=== PATIENT | female | born 1995 | race Hispanic/Latino ===

== ENCOUNTER 2018-12-10 06:57 | Emergency (ER) | payer OTHER, SELFPAY ==
[2018-12-10 07:09] VITALS: BP 118/72; PULSE 76; RESP 15; TEMP 36.6; O2SAT 99
--- NOTE | 2018-12-10 07:22 | ED.GENADULT ---
HPI - General Adult General Chief complaint: Urogenital-Female Stated complaint: Lower back pain, pressure during urination Time Seen by Provider: 12/10/18 06:59 Source: patient Mode of arrival: Family Vehicle Limitations: no limitations History of Present Illness HPI narrative: Otherwise healthy 23-year-old female who is active duty [place] here for evaluation of lower back pain and dysuria. States the symptoms been going on for the past 5 days. No fevers. No nausea vomiting. Some vaginal discharge. No bowel changes. States she has had a urinary tract infection on past this feels somewhat like that however not exactly. Has not done anything for symptoms prior to arrival Related Data Allergies Allergy/AdvReac Type Severity Reaction Status Date / Time No Known Drug Allergies Allergy Verified 12/10/18 07:12 Review of Systems Constitutional Constitutional: Denies fever(s) Cardiovascular Cardiovascular: Denies chest pain and Denies dyspnea Respiratory Respiratory: Denies dyspnea Gastrointestinal Gastrointestinal: Denies abdominal pain, Denies nausea and Denies vomiting Genitourinary Genitourinary: Reports urinary frequency, Reports dysuria, Denies urinary incontinence, Reports urinary hesitancy and Reports urinary urgency Musculoskeletal Musculoskeletal: Reports back pain Integumentary/Breasts Skin/Breast: Denies lesions and Denies rash Neurologic Neurologic: Denies behavioral changes Psychiatric Psychiatric: Denies behavioral changes Hematologic/Lymphatic Hematologic/Lymphatic: Denies easy bleeding and Denies easy bruising [facility] Medical History Healthy adult (Acute) Social History Smoking Status: Never smoker Social History Smoking Status: Never smoker Exam Initial Vital Signs Initial Vital Signs: Vital Signs Temperature 97.8 F 12/10/18 07:09 Pulse Rate 76 12/10/18 07:09 Respiratory Rate 15 12/10/18 07:09 Blood Pressure 118/72 12/10/18 07:09 Pulse Oximetry 99 12/10/18 07:09 Const General: cooperative, comfortable and well developed Orientation: alert, awake and oriented x3 Resp Effort & Inspection: normal respiratory effort Auscultation: clear to auscultation bilaterally Cardio Rate: regular rate Rhythm: regular rhythm GI Inspection: non-distended Palpation: soft, No firm and No tender Back/Spine/Pelvis Back: No CVA tenderness Thoracic/Lumbar Spine: No thoracic spinal tenderness and No lumbar spinal tenderness Skin Lesions: no lesions Rashes: no rashes Neuro General: alert and awake Cognition: normal cognition Speech: speech normal Motor: muscle tone normal throughout Sensory Exam: no sensory deficits noted Extrem General: normal to inspection and capillary refill normal Psych Appearance: grossly normal and well kempt Course Orders Ordered: ED Orders 12/10/18 07:22 Urine Chlamydia Gonorrhea PCR Stat Urine Culture Stat Urine Microscopic Stat 12/10/18 07:35 US pelvic complete Stat Vital Signs Vital signs: Vital Signs - 8 hr 12/10/18 07:09 12/10/18 09:03 Temperature 97.8 F Pulse Rate 76 64 Respiratory Rate 15 16 Blood Pressure 118/72 Blood Pressure [Left Arm] 116/81 Pulse Oximetry 99 100 Medical Decision Making Lab Data Lab results reviewed: Yes I reviewed the patient's lab results. Labs: Lab Results 12/10/18 12/10/18 Range/Units 07:22 07:22 Urine RBC None seen (0-5/HPF) Urine WBC 5-10/hpf H (0-5/HPF) Ur Squamous Epith Cells 10-30 /hpf H (0-5/HPF) Urine Bacteria Few (2-10) H (None) Urine Mucus 2+ H (Negative) Ur Culture Indicated? Cult not indicated Ur Chlamydia DNA (PCR) Not detected N gonorrhoeae DNA (PCR) Not detected Point of Care Testing Test Results Negative Urine Dip Bedside Urine Glucose Negative Bedside Urine Bilirubin + 1 Bedside Urine Ketone - Negative Urine Specific [place] 1.015 Bedside Urine Occult Blood - Negative Bedside Urine pH 7.5 Bedside Urine Protein +/- 15 Bedside Urine Urobilinogen +/- 1mg Bedside Urine Nitrite - Negative Bedside Urine Leukocytes ++ 125 Esterase Point of care testing: Point of Care Testing Test Results Negative Urine Dip Bedside Urine Glucose Negative Bedside Urine Bilirubin + 1 Bedside Urine Ketone - Negative Urine Specific [place] 1.015 Bedside Urine Occult Blood - Negative Bedside Urine pH 7.5 Bedside Urine Protein +/- 15 Bedside Urine Urobilinogen +/- 1mg Bedside Urine Nitrite - Negative Bedside Urine Leukocytes ++ 125 Esterase Imaging Data US - abdomen: Radiologist's impression: [address] [address] Ultrasound Report Signed Patient: Jenniffer Johnson#: [id number] : 1995Acct:[id number] Age/Sex: 23 / FDate of Service: 12/10/18 Loc: ED Accession Number: [id number] Procedure: US pelvic complete Ordering Provider: Jaun Ibarra D.O. PROCEDURE: US PELVIC COMPLETE INDICATIONS: LEFT ADNEXAL PAIN, EVAL FOR OVARIAN PATHOLOGY TECHNIQUE: Real-time scanning was performed of the pelvic organs, with image documentation. Additional endovaginal scanning was necessary due to incomplete visualization of the adnexal and endometrial structures by transabdominal scanning. COMPARISON: None. FINDINGS: Transabdominal scanning: Limited scanning through the kidneys shows no hydronephrosis. No pathologic free abdominal or pelvic fluid. Endovaginal scanning: Uterus: Uterus is normal in size at 9.0 x 4.3 x 5.2 cm. The endometrium measures 4.8 mm in combined thickness. The cervix appears normal. There is small amount of cul-de-sac simple fluid. Ovaries: The right ovary measures 5.4 x 3.3 x 2.5 cm and contains a partially involuted dominant simple follicle measuring 2.8 cm. There is normal flow to the right ovary. The left ovary was not seen. Bowel gas shadows the left adnexa. There is slight prominence of paraovarian and periuterine vasculature. No suspicious adnexal masses. IMPRESSION: 1. There is bowel gas shadowing the left adnexa and the left ovary was not seen. 2. The right ovary contains a dominant follicle and there is a small amount of pelvic fluid suggesting recent follicle rupture. 3. Normal uterus. 4. Mildly prominent pelvic vasculature may indicate pelvic congestion syndrome if symptomatic. Dictated by: Maribell Matson M.D. on 12/10/2018 at 9:15 Approved by: Maribell Matson M.D. on 12/10/2018 at 9:20 [facility] Narrative Medical decision making narrative: Unfortunately the ultrasound was not able to identify the left ovary which is the side where she was having most of her discomfort. She did have some free fluid in her pelvis which the report stated that could result of a ruptured follicle. She does have a right-sided follicle. Urinalysis has epi cells in it. She does have some symptoms consistent with a urinary tract infection however given her urinalysis I do feel that waiting for the urine culture to return before starting any antibiotics is warranted in this case. I did inform the patient that this was pending at the time of discharge. She is relatively benign abdominal exam. I do not feel that a CT scan is warranted today. She was concerned about STDs. Her gonorrhea and chlamydia was negative. I did inform her the results of these. We will hold on further workup for now. Patient was given strict return precautions and follow-up instructions. She expressed understanding and agreement pain. Discharge Plan Departure Patient Disposition: Home Clinical Impression: Abdominal pain Qualifiers: Abdominal location: lower abdomen, unspecified Qualified Code(s): R10.30 - Lower abdominal pain, unspecified Instructions: DI for Abdominal Pain-Adult Activity Restrictions/Additional Instructions: A urine culture was pending at the time of your discharge today. This does take 2 or 3 days to results. We will call you for any positive results. I do recommend that you contact your medical department for follow-up. Return to the emergency department for any new or worsening symptoms
[2018-12-10 07:24] LABS: RBC Urine None Seen (0-5/HPF)
[2018-12-10 07:31] LABS: Bacteria Urine Few (2-10); Squamous Epithelial Cell Urine 10-30 /HPF (0-5/HPF); WBC Urine 5-10/HPF (0-5/HPF)
[2018-12-10 07:32] LABS: Culture Indicated Urine Cult Not Indicated; Mucus Urine 2+ (Negative)
--- NOTE | 2018-12-10 07:35 | DI.US.S_ITS ---
PROCEDURE: US PELVIC COMPLETE INDICATIONS: LEFT ADNEXAL PAIN, EVAL FOR OVARIAN PATHOLOGY TECHNIQUE: Real-time scanning was performed of the pelvic organs, with image documentation. Additional endovaginal scanning was necessary due to incomplete visualization of the adnexal and endometrial structures by transabdominal scanning. COMPARISON: None. FINDINGS: Transabdominal scanning: Limited scanning through the kidneys shows no hydronephrosis. No pathologic free abdominal or pelvic fluid. Endovaginal scanning: Uterus: Uterus is normal in size at 9.0 x 4.3 x 5.2 cm. The endometrium measures 4.8 mm in combined thickness. The cervix appears normal. There is small amount of cul-de-sac simple fluid. Ovaries: The right ovary measures 5.4 x 3.3 x 2.5 cm and contains a partially involuted dominant simple follicle measuring 2.8 cm. There is normal flow to the right ovary. The left ovary was not seen. Bowel gas shadows the left adnexa. There is slight prominence of paraovarian and periuterine vasculature. No suspicious adnexal masses. IMPRESSION: 1. There is bowel gas shadowing the left adnexa and the left ovary was not seen. 2. The right ovary contains a dominant follicle and there is a small amount of pelvic fluid suggesting recent follicle rupture. 3. Normal uterus. 4. Mildly prominent pelvic vasculature may indicate pelvic congestion syndrome if symptomatic. Dictated by: Maribell Matson M.D. on 12/10/2018 at 9:15 Approved by: Maribell Matson M.D. on 12/10/2018 at 9:20
[2018-12-10 08:54] LABS: Urine N gonorrhoeae NOT DETECTED
[2018-12-10 09:03] VITALS: BP 116/81; PULSE 64; RESP 16; O2SAT 100
[2018-12-10 09:08] LABS: Urine Chlamydia NOT DETECTED
== END 2018-12-10 09:44 | disposition home or self-care (01) ==
PROVIDERS: Emergency Provider Emergency Medicine
DX: R10.30 Lower abdominal pain, unspecified (principal)
CPT/HCPCS: 76830; 76856; 81003; 81015; 81025; 87086; 87491; 87591; 99282; 99283

== ENCOUNTER 2019-02-28 19:26 | Emergency (ER) | payer OTHER, SELFPAY ==
[2019-02-28 19:31] VITALS: BP 118/74; PULSE 103; RESP 20; TEMP 37.1; O2SAT 100
[2019-02-28 20:53] LABS: RBC Urine None Seen (0-5/HPF)
[2019-02-28 21:00] LABS: Bacteria Urine Occasional (0-1); Culture Indicated Urine Specimen Cultured; Squamous Epithelial Cell Urine 0-1 /HPF (0-5/HPF); WBC Urine 1-5/HPF (0-5/HPF)
--- NOTE | 2019-02-28 21:32 | PC.NURSE ---
2115 no answer in [place] or surrounding areas when called, admissions staff report seeing pt walk outside
--- NOTE | 2019-03-01 01:53 | ED.PEDGIA ---
HPI - Pediatric GI General Chief Complaint: Abdominal Pain Stated Complaint: BODY ACHES BACK PAIN ABD PAIN Source: patient Mode of arrival: Ambulatory Related Data Allergies Allergy/AdvReac Type Severity Reaction Status Date / Time No Known Drug Allergies Allergy Verified 12/10/18 07:12 Patient History Social History Smoking Status: Never smoker Smoking Status: Never smoker Substance Use Type: does not use Pediatric Exam Initial Vital Signs Initial Vital Signs: Vital Signs Temperature 98.8 F 02/28/19 19:31 Pulse Rate 103 H 02/28/19 19:31 Respiratory Rate 20 02/28/19 19:31 Blood Pressure 118/74 02/28/19 19:31 Pulse Oximetry 100 02/28/19 19:31 Course Orders Ordered: ED Orders 02/28/19 20:30 Urine Culture Stat Urine Microscopic Stat Vital Signs Vital signs: Vital Signs - 8 hr 02/28/19 19:31 Temperature 98.8 F Pulse Rate 103 H Respiratory Rate 20 Blood Pressure 118/74 Pulse Oximetry 100 Medical Decision Making Lab Data Labs: Lab Results 02/28/19 Range/Units 20:30 Urine RBC None seen (0-5/HPF) Urine WBC 1-5/hpf (0-5/HPF) Ur Squamous Epith Cells 0-1 /hpf D (0-5/HPF) Urine Bacteria Occasional (0-1) (None) Ur Culture Indicated? Specimen cultured Point of Care Testing Test Results Negative Urine Dip Bedside Urine Glucose Negative Bedside Urine Bilirubin - Negative Bedside Urine Ketone - Negative Urine Specific [place] 1.015 Bedside Urine Occult Blood - Negative Bedside Urine pH 6.5 Bedside Urine Protein - Negative Bedside Urine Urobilinogen - Negative Bedside Urine Nitrite - Negative Bedside Urine Leukocytes + 70 Esterase Point of care testing: Point of Care Testing Test Results Negative Urine Dip Bedside Urine Glucose Negative Bedside Urine Bilirubin - Negative Bedside Urine Ketone - Negative Urine Specific [place] 1.015 Bedside Urine Occult Blood - Negative Bedside Urine pH 6.5 Bedside Urine Protein - Negative Bedside Urine Urobilinogen - Negative Bedside Urine Nitrite - Negative Bedside Urine Leukocytes + 70 Esterase Discharge Plan Departure Patient Disposition: Left Without Being Seen Clinical Impression: Patient left without being seen Discharge Date/Time: 02/28/19 21:44 Stand Alone Forms: Against Medical Advice
== END 2019-02-28 21:44 | disposition left against medical advice (07) ==
PROVIDERS: Emergency Provider Emergency Medicine
DX: R10.9 Unspecified abdominal pain (principal)
CPT/HCPCS: 81003; 81015; 81025; 87086; 99281

== ENCOUNTER 2019-05-12 07:58 | Emergency (ER) | payer OTHER, SELFPAY ==
--- NOTE | 2019-05-12 08:04 | ED.FEMALEGU ---
HPI - Female Genitourinary General Chief complaint: Vaginal Bleeding Stated complaint: , abdominal pain and bleeding Time Seen by Provider: 05/12/19 07:59 Source: patient Mode of arrival: Ambulatory Limitations: no limitations History of Present Illness HPI Narrative: 24-year-old female nonsmoker is a with a recent positive . She was seen a few days ago due to some episodic pelvic cramping and found out she was . Yesterday she followed up and had a beta quantitative hCG measuring about 700. She was encouraged to follow-up in a few days unless symptoms worsened. She started having some spotting overnight hence her visit to us. She denies fever or chills. She has no vaginal discharge. She denies dysuria, frequency or urgency. Her bleeding is minimal MD Complaint: vaginal bleeding and pelvic pain Onset (ago): hour(s) Location: suprapubic Severity: mild Quality: Cramping Duration: intermittent Relieving factors: none Exacerbating factors: none Vaginal discharge: blood clots Patient : Yes Associated symptoms: denies other symptoms Related Data Home Medications Medication Instructions Recorded Confirmed doxylamine-pyridoxine (vit B6) 1 tab PO DAILY 05/12/19 05/12/19 Allergies Allergy/AdvReac Type Severity Reaction Status Date / Time No Known Drug Allergies Allergy Verified 05/12/19 08:06 Review of Systems Constitutional Constitutional: Denies chills, Denies fatigue, Denies fever(s), Denies frequent falls, Denies lethargy and Denies weakness Eyes Eyes: Denies change in vision, Denies eye discharge, Denies irritation and Denies loss of vision ENT Ears, Nose, Mouth, and Throat: Denies change in voice, Denies dizziness, Denies neck pain, Denies sore throat and Denies throat swelling Cardiovascular Cardiovascular: Denies chest pain, Denies irregular heart rhythm, Denies lightheadedness, Denies palpitations, Denies dyspnea, Denies dyspnea on exertion and Denies orthopnea Respiratory Respiratory: Denies cough, Denies dyspnea, Denies dyspnea on exertion and Denies wheezing Gastrointestinal Gastrointestinal: Denies abdominal pain, Denies change in bowel habits, Denies diarrhea, Denies nausea and Denies vomiting Genitourinary Genitourinary: Reports abnormal vaginal bleeding, Denies hematuria, Reports pelvic pain, Denies flank pain, Denies urinary incontinence and Denies urinary urgency Musculoskeletal Musculoskeletal: Denies back pain, Denies muscle weakness, Denies neck pain, Denies numbness and Denies tingling Integumentary/Breasts Skin/Breast: Denies pruritus, Denies erythema, Denies rash and Denies wounds Neurologic Neurologic: Denies behavioral changes, Denies confusion, Denies dizziness, Denies frequent falls, Denies loss of vision, Denies numbness, Denies tingling and Denies weakness Psychiatric Psychiatric: Denies anxiety, Denies behavioral changes, Denies confusion, Denies depression, Denies homicidal ideation and Denies suicidal ideation Endocrine Endocrine: Denies fatigue, Denies flushing and Denies palpitations Hematologic/Lymphatic Hematologic/Lymphatic: Denies easy bruising Allergic/Immunologic Allergic/Immunologic: Denies urticaria, Denies throat swelling and Denies wheezing Patient History Medical History Healthy adult (Acute) Substance Use Type: does not use Exam Narrative Exam Narrative: GENERAL: [24] year old patient appears stated age. Well-nourished, well-developed patient, in mild distress. HEAD: Atraumatic. Normocephalic. EYES: Pupils equal round and reactive. Extraocular motions intact. No scleral icterus. No injection or drainage. ENT: Nose without bleeding, purulent drainage. Throat without erythema, tonsillar hypertrophy or exudate. Airway patent. NECK: Trachea midline. Non tender CARDIOVASCULAR: Regular rate and rhythm without murmurs, gallops, or rubs. RESPIRATORY: Clear to auscultation. Breath sounds equal bilaterally. No wheezes, rales, or rhonchi. GASTROINTESTINAL: Abdomen soft, non-tender, nondistended. EXTREMITIES: No edema or joint tenderness. BACK: Nontender without deformity or crepitance. No flank tenderness. NEURO: AOx3. SKIN: No rash or erythema of visible areas Initial Vital Signs Initial Vital Signs: Vital Signs Temperature 98.5 F 05/12/19 08:06 Pulse Rate 81 05/12/19 08:06 Respiratory Rate 16 05/12/19 08:06 Blood Pressure 133/78 05/12/19 08:06 Pulse Oximetry 100 05/12/19 08:06 Course Course Course Narrative: Patient is with spotting and episodic (now absent) vaginal cramping. Quantitative hCG is below the discriminatory zone. Patient given return precautions and questions answered to her apparent satisfaction Orders Ordered: ED Orders 05/12/19 09:42 ABO RH Type Stat HCG Quantitative /Beta subunit Stat Vital Signs Vital signs: Vital Signs - 8 hr 05/12/19 10:57 Pulse Rate 81 Respiratory Rate 16 Blood Pressure [Right Arm] 128/81 Pulse Oximetry 100 MDM - Female Genitourinary Lab Data Labs: Lab Results 05/12/19 05/12/19 Range/Units 09:42 09:42 HCG, Quant 920.79 mIU/mL Blood Type A Positive Urine Dip Bedside Urine Glucose Negative Bedside Urine Bilirubin - Negative Bedside Urine Ketone - Negative Urine Specific [place] 1.025 Bedside Urine Occult Blood +/- Bedside Urine pH 6.5 Bedside Urine Protein - Negative Bedside Urine Urobilinogen - Negative Bedside Urine Nitrite - Negative Bedside Urine Leukocytes - Negative Esterase Discharge Plan Departure Patient Disposition: Home Clinical Impression: First trimester bleeding Discharge Date/Time: 05/12/19 10:56 Instructions: DI for Vaginal Bleeding During Activity Restrictions/Additional Instructions: *You have been diagnosed with [cramping and spotting in first-trimester, today's HCG is 920 which is too early for an ultrasound. Please return here or with your PCP in 2 to 3 days to get a repeat HCG and possible ultrasound] *What to do: *Take medications as directed *Follow up with your primary care provider in 2-3 days, call for an appointment. Let them know you were seen in the Emergency Department and that we ask that you be seen in follow up *Return to ER if you should have any new, worsening or concerning symptoms, such as [increasing pain or bleeding through more than 1 pad per hour] Prescriptions: No Action doxylamine-pyridoxine (vit B6) 10-10 mg Tablet,Delayed Release (Dr/Ec) 1 tab PO DAILY RF: 0
[2019-05-12 08:06] VITALS: BP 133/78; PULSE 81; RESP 16; TEMP 36.9; O2SAT 100; BMI 29.7
[2019-05-12 10:21] LABS: HCG Quantitative /Beta subunit 920.79 mIU/mL
[2019-05-12 10:57] VITALS: BP 128/81; PULSE 81; RESP 16; O2SAT 100
== END 2019-05-12 10:56 | disposition home or self-care (01) ==
PROVIDERS: Emergency Provider Emergency Medicine
DX: O20.9 Hemorrhage in early pregnancy, unspecified (principal); R10.2 Pelvic and perineal pain
CPT/HCPCS: 36415; 81003; 84702; 86900; 86901; 99282